=== PATIENT | female | born 1950 | race Caucasian/White ===

== ENCOUNTER 2016-12-01 14:12 | Emergency (ER) | payer BC, OTHER ==
[2016-12-01 14:29] VITALS: BP 144/77
--- NOTE | 2016-12-01 14:47 | UC ---
Skin Complaint HPI - History of Current Complaint Chief Complaint: [facility] Time Seen by Provider: 12/01/16 14:35 Stated Complaint: RIGHT ARM INJURY Hx Obtained From: Patient ?: No Onset/Duration: Sudden Onset - tripped and fell into a dog crate., Lasting Days - last night., Worse Since - today with spreading redness. Onset Severity: Mild Current Severity: Moderate Location: Discrete - Right arm. Character: Pain, Redness, Raised Aggravating: Touch Alleviating: Cold Associated Signs & Symptoms: Positive: Tenderness. Negative: Fever, Chills Related History: Trauma - arm caught on a dog crate. - Allergy/Home Medications Allergies/Adverse Reactions: Allergies Allergy/AdvReac Type Severity Reaction Status Date / Time No Known Allergies Allergy Verified 12/01/16 14:29 Home Medications: Home Medications [id number] [Sinus Congestion & Pain S 5-325-200 mg] 2 tab PO PRN 12/01/16 [History] Review of Systems ENT: Sinus Congestion, Sinus Pain/Tenderness All Other Systems Reviewed And Are Negative: Yes PMH/Surg Hx/FS Hx/Imm Hx Previously Healthy: Yes Other History Of: Negative For: HIV - Surgical History Surgical History: Yes Surgery Procedure, Year, and Place: L hip replacement, , L club foot repair, ectopic , - Family History Known Family History: Positive: Cardiac Disease, Hypertension, Diabetes - Social History Occupation: Employed Full-time Lives: Alone Alcohol Use: Rare Substance Use Type: None Smoking Status (MU): Never Smoked Tobacco Have You Smoked in the Last Year: No Physical Exam Triage Information Reviewed: Yes Appearance: Well-Appearing, No Pain Distress, Well-Nourished Vital Signs: Initial Vital Signs Temp 99 F 12/01/16 14:19 Pulse 94 12/01/16 14:19 Resp 16 12/01/16 14:19 BP 144/77 12/01/16 14:19 Pulse Ox 100 12/01/16 14:19 Vital Signs Reviewed: Yes Eyes: Positive: Conjunctiva Clear ENT: Positive: Pharynx normal, Nasal congestion - allergic congestion., TMs normal Neck exam: Normal Respiratory Exam: Normal Cardiovascular Exam: Normal Musculoskeletal Exam: Normal Neurological Exam: Normal Psychological Exam: Normal Skin: Positive: Other - Redness on the right arm 7x13cm warm with 2 central puncture wounds. Course/Dx - Differential Diagnoses - Skin Complaint Differential Diagnoses: Cellulitis, Impetigo, Urticaria - Diagnoses Provider Diagnoses: Cellulitis right arm. Allergic rhinitis Discharge - Discharge Plan Condition: Stable Disposition: HOME Prescriptions: Cephalexin CAP* [Keflex 500 CAP*] 500 mg PO QID #28 cap Patient Education Materials: Cellulitis (ED), Cephalexin (By mouth), Allergic Rhinitis (ED) Additional Instructions: NEILMED SINUS RINSE: CHECK OUT AT [facility] Saline nasal wash helps with mucous, allergies and congestion. It can be used up to twice a day or only as needed. Use lukewarm tap water. It does not have to be sterilized or distilled water. Do 1/3 on each side and snort out of both nostrils. Repeat the process with 1/6 of the bottle on each side with snorting in between to finish the solution in the bottle
== END 2016-12-01 15:14 | disposition home or self-care (01) ==
LOC: UCCORT 14:12
DX: L03.818 Cellulitis of other sites (principal); L03.113 Cellulitis of right upper limb; J30.9 Allergic rhinitis, unspecified
CPT/HCPCS: 99212; G0463